=== PATIENT | female | born 1950 | race Caucasian/White ===

== ENCOUNTER → 2016-04-27 | Outpatient (POV) | payer MEDICARE | LOC: M IRPOV 14:41 | PROVIDERS: ATTEND Surgery | DX: I83.215 Varicose veins of right lower extremity with both ulcer other part of foot and inflammation (principal); I83.225 Varicose veins of left lower extremity with both ulcer other part of foot and inflammation; I83.812 Varicose veins of left lower extremity with pain; I83.893 Varicose veins of bilateral lower extremities with other complications ==

== ENCOUNTER → 2016-04-30 | Outpatient (CLI) | payer MEDICARE ==
--- NOTE | 2016-04-30 11:31 | REP ---
MR angiography of the aorta and lower extremity runoff arteries with IV contrast: History: Chronic venous hypertension left lower extremity with ulcer lateral aspect at the ankle. Smaller ulcer on the right foot. Technique: The gadolinium enhancement dose is 35 mL of intravenous ProHance. MR angiography is acquired and maximal intensity projection images are generated and viewed rotationally about the vertical axis. Source coronal images are viewed as well. MR angiographic findings: The suprarenal and infrarenal abdominal aorta are widely patent and smooth. The celiac and superior mesenteric axes are normal. Singular non-stenotic renal artery origins are seen. I do not see a definite flow in the inferior mesenteric artery. The common iliac arteries are widely patent bilaterally. The internal and external iliac arteries are widely patent bilaterally as well. Common femoral arteries are unremarkable. There is no evidence of profunda or proximal superficial femoral artery stenosis or occlusion. The mid and distal superficial femoral arteries are widely patent bilaterally. Popliteal arteries are of good caliber. The calf trifurcations are clear bilaterally and three-vessel calf run off is seen to the distal calf in both legs. There is mild venous overlay bilaterally in the calf portion of the study. Impression: No evidence of arterial inflow stenosis on either side. Signed by Boris Holbrook MD 04/30/2016 12:08 P
== END ==
LOC: M RAD 09:26
PROVIDERS: ATTEND Surgery
DX: I87.312 Chronic venous hypertension (idiopathic) with ulcer of left lower extremity (principal); Z86.79 Personal history of other diseases of the circulatory system; Z79.899 Other long term (current) drug therapy; I10 Essential (primary) hypertension
CPT/HCPCS: A9576; C8902; C8914

== ENCOUNTER → 2016-05-04 | Outpatient (CLI) | payer MEDICARE ==
--- NOTE | 2016-05-04 11:32 | REP ---
RIGHT LOWER EXTREMITY DOPPLER VENOUS ULTRASOUND: 05/04/2016. No comparison study. CLINICAL HISTORY: Nonhealing ulcer right ankle. Evaluate for DVT and reflux. TECHNIQUE: The deep venous system of the right lower extremity is evaluated with rene scale imaging, compression ultrasound, color imaging and duplex Doppler interrogation. Examination from the groin through the popliteal fossa into the proximal calf. FINDINGS: There is full compressibility from the common femoral vein in the inguinal region through the popliteal vein. Color imaging confirms patency throughout the course of the deep venous system. There is respiratory variation and augmented flow at all levels. IMPRESSION: 1. No Doppler venous ultrasound evidence of DVT in the right lower extremity. RIGHT LOWER EXTREMITY DOPPLER VENOUS REFLUX ULTRASOUND: 05/04/2016. Examination performed with standard duplex venous reflux study with Valsalva maneuver. Common femoral vein: There was minimal reflux. Anterior accessory GSV: Not present. GSV at saphenofemoral junction: Reflux seen. AP dimension 4.5 mm, 4.2 seconds. GSV at midthigh: Reflux seen with AP dimension 2.9 mm, 4.5 seconds. GSV at knee: reflux present with AP dimension 2.5 mm, 5.2 seconds. SFV proximal: No reflux. SFV mid: No reflux. SFV distal no reflux. Popliteal: No reflux. LSV: No reflux. AP diameter 1.8 mm. There were a few collaterals noted from the GSV, one of these leads posteriorly to the ankle ulcer with significant surrounding ankle edema. IMPRESSION: There is minimal reflux in the common femoral vein but no where else in the deep venous system. However, the greater saphenous vein showed significant reflux throughout with the time of reflux 4.2 to 5.2 seconds (positive reflux greater than 0.5 seconds). Signed by Eduard Friend MD 05/04/2016 12:03 P
== END ==
LOC: M RAD 08:29
PROVIDERS: ATTEND Surgery
DX: L97.311 Non-pressure chronic ulcer of right ankle limited to breakdown of skin (principal); I87.2 Venous insufficiency (chronic) (peripheral); I87.312 Chronic venous hypertension (idiopathic) with ulcer of left lower extremity; I87.332 Chronic venous hypertension (idiopathic) with ulcer and inflammation of left lower extremity

== ENCOUNTER → 2016-05-26 | Outpatient (CLI) | payer MEDICARE ==
[~2016-05-26] MED LIST: LIDOCAINE 2% MDV 20 ML VIAL As Ordered ONE; LIDOCAINE 4% CREAM 5GM (LMX4) As Ordered ONE; LORazepam 0.5 MG TAB As Ordered ONE; SODIUM TETRADECYL SULFATE(3%)30MG/ML 2ML VIAL (SOTRADECOL) As Ordered ONE
--- NOTE | 2016-05-27 18:34 | REPKIM ---
INDICATION: Patient with bilateral lower extremity varicose veins, active unhealing ulcers and complications present for left lower extremity EVLT of the incompetent GSV and LSV, sclerotherapy of significant varicosities in the calf leading to leg ulcers. Ultrasound reflux evaluation of the left leg showed significant reflux throughout the greater saphenous vein with the time of reflux 2.8 to 4.9 seconds. This also showed significant reflux in the lesser saphenous vein 5.4 second duration, AP diameter 6 mm. There are multiple collateral varicosities communicating with the incompetent lesser saphenous vein traversing toward the ankle ulcer. Patient has failed conservative treatment; utilization of compressive stockings, leg elevation wound debridement. PROCEDURE: 1. Endovenous laser ablation therapy of the incompetent GSV on the left 2. Endovenous laser ablation therapy of the incompetent LSV on the left 3. Sclerotherapy of significant collateral varicosities in the calf toward the ankle ulcer INTERVENTIONALIST: Annette Carpenter MD EBL: 5 mL MEDICATIONS: Ativan 0.5mg po, Local Lidocaine and Sodium Tetradecyl Sulfate 3% diluted to 1.5% DEVICE USED: 45-CM VenaCure EVLT [facility] Lot#[id number] TECHNIQUE AND FINDINGS: Informed consent was obtained prior to the procedure. The patient was placed supine on the table. A time out was performed that verified correct procedure, site, side and materials available. Ultrasound examination was performed and focused on the saphenofemoral junction of the left leg. This confirmed significant reflux involving the greater saphenous vein as previously described. There is a significant incompetent Giacomini large collateral was noted to connect the saphenous vein at the saphenofemoral junction. This also showed significant reflux involving the lesser saphenous vein with significant collateral varicosities toward the unhealing ankle ulcer. The patient was placed in the supine position. The left lower extremity was prepped and draped in the usual sterile fashion. After local anesthesia with 1mL of lidocaine 1% at the skin, the incompetent greater saphenous vein above the knee level was accessed with a 21 gauge needle and a 0.018" wire followed by a 4 Macanese sheath of the EVLT kit. The sheath was advanced over the wire to the saphenofemoral junction level and the laser fiber was advanced coaxially and its tip was positioned in the incompetent Giacomini collateral over a guidewire. The catheter tip was positioned at least 3-4cm distal from the saphenofemoral junction. After tumescent anesthesia, endovenous laser ablation was applied. Compression was maintained at the saphenofemoral junction. The sheath was then withdrawn and repositioned in the greater saphenous vein approximately 5 cm distal from the saphenofemoral junction. Tumescent anesthesia was given along this vein by using real-time ultrasonographic guidance and a 22 gauge spinal needle and a mixture of diluted lidocaine ( 12.5mL @ 2% in 237.5mL of normal saline). Endovenous laser ablation was applied along the greater saphenous vein using 6 Gilman in continuous mode for a total duration of 149 seconds. A total of 985 Joules was delivered. The patient was then positioned in the prone position. The left lower extremity was prepped and draped in the usual sterile fashion. After local anesthesia with 1mL of lidocaine 1% at the skin, the incompetent lesser saphenous vein was accessed with a 21 gauge needle and a 0.018" wire followed by a 4 Macanese sheath of the EVLT kit. The sheath was advanced over the wire to the saphenopopliteal junction level and the laser fiber was advanced coaxially and its tip was positioned approximately 4 cm distal from the saphenopopliteal junction. Tumescent anesthesia was given along this vein by using real-time ultrasonographic guidance and a 22 gauge spinal needle and a mixture of diluted lidocaine (12.5mL @ 2% in 237.5mL of normal saline). Endovenous laser ablation was applied along the lesser saphenous vein using 6 Gilman in continuous mode for a total duration of 31 seconds. A total of 183 Joules was delivered. Significant collateral varicosity in the calf region leading to the ankle ulcer was then accessed with a micropuncture needle. Approximately 2 mL of sclerotherapy foam (1mL sodium tetradecyl sulfate diluted at 1.5 %) mixed with air at a ratio of 1:4 injected. Compression was maintained. SteriStrips was applied on the skin, followed by 20-30 mm Hg compression stockings. The patient was then allowed to stand and instructed to walk for 15 minutes. She was then discharged back home in good and stable condition with no immediate complication. This procedure was performed with ultrasound guidance. Dr. Carpenter was present. IMPRESSION: 1. Bilateral lower extremity varicose veins with unhealing active ulcers and other complications. 2. Successful treatment of symptomatic incompetent GSV in the left lower extremity by endovenous laser ablation. 3. Successful treatment of symptomatic incompetent LSV in the left lower extremity by endovenous laser ablation. 4. Significant collateral varicosities leading to ulcer in the calf also treated with sclerotherapy as discussed above. PLAN: Pt was given post-procedure instructions, including contact information for a follow-up duplex ultrasound of the left lower extremity to rule out DVT and post EVLT/sclerotherapy evaluation in next several days. Plan to treat the right lower extremity incompetent superficial veins in next several weeks. cc: MD ISABEL Street
== END | disposition home or self-care (01) ==
LOC: M IRPRO 10:39
DX: I83.225 Varicose veins of left lower extremity with both ulcer other part of foot and inflammation (principal); I83.215 Varicose veins of right lower extremity with both ulcer other part of foot and inflammation; I83.893 Varicose veins of bilateral lower extremities with other complications; L97.819 Non-pressure chronic ulcer of other part of right lower leg with unspecified severity; L97.829 Non-pressure chronic ulcer of other part of left lower leg with unspecified severity
CPT/HCPCS: 36470; 36478; 36479; C1769; C1888

== ENCOUNTER → 2016-05-29 | Outpatient (CLI) | payer MEDICARE ==
--- NOTE | 2016-05-29 11:32 | REP ---
LEFT LOWER EXTREMITY DUPLEX VENOUS ULTRASOUND: HISTORY: Followup status post greater and lesser saphenous vein laser therapy. FINDINGS: The deep veins are anechoic and fully compressible from the groin to the popliteal fossa on two-dimensional scanning. Color-flow spectral Doppler interrogation demonstrates intact respiratory variation in flow and normal manual augmentation of flow. Color-flow imaging is homogeneous. There is no evidence of DVT. Thrombosis is observed as expected in the treated greater saphenous and lesser saphenous veins. IMPRESSION: Superficial vein thrombosis as expected in the treated lesser and greater saphenous veins. No evidence of deep vein thrombosis. Signed by Boris Holbrook MD 05/29/2016 12:52 P
== END ==
LOC: M RAD 09:59
DX: I82.812 Embolism and thrombosis of superficial veins of left lower extremity (principal)

== ENCOUNTER → 2016-06-29 | Outpatient (CLI) | payer MEDICARE ==
--- NOTE | 2016-06-29 18:09 | REPKIM ---
INDICATION: Patient with bilateral lower extremity varicose veins, active unhealing ulcers and complications, s/p successful EVLT and sclerotherapy of the left lower extremity on May 26, 2016 presents for EVLT of the right lower extremity incompetent GSV. PROCEDURE: Endovenous laser ablation therapy of the incompetent GSV on the right INTERVENTIONALIST: Annette Carpenter MD EBL: 3 mL MEDICATIONS: Ativan 0.5mg po, Local Lidocaine and Sodium Tetradecyl Sulfate 3% diluted to 1.5% DEVICE USED: 45-CM VenaCure EVLT [facility] Lot#[id number] TECHNIQUE AND FINDINGS: Informed consent was obtained prior to the procedure. The patient was placed supine on the table. A time out was performed that verified correct procedure, site, side and materials available. Ultrasound examination was performed and focused on the saphenofemoral junction of the right leg. This confirmed significant reflux, greater than 4-5 seconds involving the greater saphenous vein as previously described associated with calf significant subcutaneous edema. This also showed significant reflux involving the greater saphenous vein below the knee level and unhealing ulcer noted in the leg. The right lower extremity was prepped and draped in the usual sterile fashion. After local anesthesia with 1mL of lidocaine 1% at the skin, the incompetent greater saphenous vein above the knee level was accessed with a 21 gauge needle and a 0.018" wire followed by a 4 Irish sheath of the EVLT kit. The sheath was advanced over the wire to the saphenofemoral junction level and the laser fiber was advanced coaxially and its tip was positioned approximately 5 cm distal from the saphenofemoral junction. Tumescent anesthesia was given along this vein by using real-time ultrasonographic guidance and a 22 gauge spinal needle and a mixture of diluted lidocaine (12.5mL @ 2% in 237.5mL of normal saline). Endovenous laser ablation was applied along the greater saphenous vein using 6 Gilman in continuous mode for a total duration of 196 seconds. A total of 1177 Joules was delivered. Approximately 2 mL of sclerotherapy foam (1mL sodium tetradecyl sulfate diluted at 1.5 %) mixed with air at a ratio of 1:4 injected via the sheath prior to removal. Ultrasonography showed shrunken and hyper- echoic of the ablated vein as usually, with persistent fully compressibility of deep veins. SteriStrips was applied on the skin, followed by 20-30 mm Hg compression stockings. The patient was then allowed to stand and instructed to walk for 15 minutes. She was then discharged back home in good and stable condition with no immediate complication. This procedure was performed with ultrasound guidance. Dr. Carpenter was present. IMPRESSION: Successful treatment of symptomatic incompetent GSV in the right lower extremity by endovenous laser ablation. PLAN: Pt was given post-procedure instructions, including contact information for a follow-up duplex ultrasound of the right lower extremity to rule out DVT and post EVLT evaluation in next several days. cc: Gerson Morales MD [facility] HOSPITALRaymundo
== END | disposition home or self-care (01) ==
LOC: M IRPRO 08:22
DX: I83.215 Varicose veins of right lower extremity with both ulcer other part of foot and inflammation (principal); I83.893 Varicose veins of bilateral lower extremities with other complications; I83.225 Varicose veins of left lower extremity with both ulcer other part of foot and inflammation; L97.919 Non-pressure chronic ulcer of unspecified part of right lower leg with unspecified severity; L97.929 Non-pressure chronic ulcer of unspecified part of left lower leg with unspecified severity
CPT/HCPCS: 36478; C1888

== ENCOUNTER → 2016-07-02 | Outpatient (CLI) | payer MEDICARE ==
--- NOTE | 2016-07-02 14:58 | REP ---
RIGHT LOWER EXTREMITY DUPLEX VENOUS ULTRASOUND: HISTORY: Patient is status post endovascular laser thrombosis of the greater saphenous vein. Evaluate for DVT. FINDINGS: The deep veins are anechoic and fully compressible in the right lower extremity from the groin to the popliteal fossa on two-dimensional scanning. Color flow imaging is homogeneous. Spectral Doppler interrogation demonstrates intact respiratory variation in flow and normal manual augmentation of flow. There is no evidence of deep vein thrombosis. The greater saphenous vein shows occlusive thrombosis as expected post-treatment. IMPRESSION: No evidence of DVT. Signed by Boris Holbrook MD 07/02/2016 05:38 P
== END ==
LOC: M RAD 09:15
DX: Z48.812 Encounter for surgical aftercare following surgery on the circulatory system (principal)

== ENCOUNTER → 2016-09-11 | Outpatient (REF) | payer MEDICARE | LOC: M LAB REF 08:53 | PROVIDERS: ATTEND Surgery | DX: I87.311 Chronic venous hypertension (idiopathic) with ulcer of right lower extremity (principal) ==

== ENCOUNTER → 2016-12-18 | Outpatient (REF) | payer MEDICARE | LOC: M LAB REF 19:43 | PROVIDERS: ATTEND Physician Assistant | DX: R30.0 Dysuria (principal) ==

== ENCOUNTER → 2017-01-10 | Outpatient (REF) | payer MEDICARE | LOC: M LAB REF 18:35 | PROVIDERS: ATTEND Physician Assistant | DX: R30.0 Dysuria (principal) ==

== ENCOUNTER → 2018-01-21 | Outpatient (REF) | payer MEDICARE | LOC: M LAB REF 13:25 | DX: R30.0 Dysuria (principal) | CPT/HCPCS: 87086 ==

== ENCOUNTER → 2022-03-18 | Outpatient (CLI) | payer MEDICARE ==
[2022-03-18 11:49] LABS: BASO # 0.1 10^3/uL (0.0-0.2); BASO % 1.4 % (0.0-1.0); EOS # 0.3 10^3/uL (0.0-0.5); EOS % 3.2 % (0.0-3.0); HEMOGLOBIN 12.3 g/dl (12.0-15.5); LYMPH # 1.3 10^3/uL (1.5-5.0); LYMPH % 16.3 % (24.0-44.0); MEAN CORPUSCULAR HEMOGLOBIN 31.1 pg (27.0-33.0); MEAN CORPUSCULAR HGB CONC 33.2 g/dl (32.0-36.5); MEAN CORPUSCULAR VOLUME 93.4 fl (80.0-96.0); MONO # 0.8 10^3/uL (0.0-0.8); MONO % 10.3 % (2.0-8.0); NEUTROPHILS # 5.4 10^3/uL (1.5-8.5); NEUTROPHILS % 68.5 % (36.0-66.0); PLATELET COUNT, AUTOMATED 321 10^3/uL (150-450); RED BLOOD COUNT 3.96 10^6/uL (4.00-5.40); WHITE BLOOD COUNT 7.8 10^3/uL (4.0-10.0)
[2022-03-18 12:29] LABS: ALBUMIN 3.6 G/DL (3.2-5.2); ALKALINE PHOSPHATASE 65 U/L (46-116); ALT/SGPT 20 U/L (7.0-40); AST/SGOT 19 U/L (<34); BILIRUBIN,TOTAL 0.4 MG/DL (0.3-1.2); BLOOD UREA NITROGEN 23 MG/DL (9-23); CALCIUM LEVEL 8.9 MG/DL (8.3-10.6); CARBON DIOXIDE LEVEL 26 MMOL/L (20-31); CHLORIDE LEVEL 103 MMOL/L (98-107); GLOMERULAR FILTRATION RATE > 60.0 (>39); GLUCOSE, FASTING 92 MG/DL (74-106); POTASSIUM SERUM 3.3 MMOL/L (3.5-5.1); SODIUM LEVEL 139 MMOL/L (136-145); TOTAL PROTEIN 6.9 G/DL (5.7-8.2)
[2022-03-18 12:38] LABS: PREALBUMIN 19.5 MG/DL (10.0-40.0)
[2022-03-18 12:43] LABS: ERYTHROCYTE SEDIMENTATION RATE 56 mm/hr (0-30)
== END ==
LOC: M LAB 10:55
PROVIDERS: ATTEND Surgery
DX: I87.313 Chronic venous hypertension (idiopathic) with ulcer of bilateral lower extremity (principal); S81.802A Unspecified open wound, left lower leg, initial encounter; S81.801A Unspecified open wound, right lower leg, initial encounter; S81.802S Unspecified open wound, left lower leg, sequela; S81.801S Unspecified open wound, right lower leg, sequela; X58.XXXA Exposure to other specified factors, initial encounter; Y92.9 Unspecified place or not applicable; Y93.9 Activity, unspecified; Y99.9 Unspecified external cause status

== ENCOUNTER → 2022-03-27 | Outpatient (CLI) | payer MEDICARE | LOC: M PLARAD 14:41 | PROVIDERS: ATTEND Surgery | DX: S81.801A Unspecified open wound, right lower leg, initial encounter (principal); S81.802A Unspecified open wound, left lower leg, initial encounter ==

== ENCOUNTER → 2023-04-01 | Outpatient (CLI) | payer MEDICARE | LOC: M PLARAD 10:04 | PROVIDERS: ATTEND Surgery | DX: R22.42 Localized swelling, mass and lump, left lower limb (principal) ==

== ENCOUNTER → 2023-04-21 | Outpatient (REF) | payer MEDICARE ==
[2023-04-21 13:35] LABS: C REACTIVE PROTEIN QUANTITATIV < 0.40 MG/DL (<1.0)
[2023-04-21 13:37] LABS: PREALBUMIN 24.6 MG/DL (10.0-40.0)
== END ==
LOC: M LAB REF 12:04
PROVIDERS: ATTEND Internal Medicine
DX: M86.171 Other acute osteomyelitis, right ankle and foot (principal)

== ENCOUNTER → 2023-05-05 | Outpatient (REF) | payer MEDICARE ==
[2023-05-05 14:02] LABS: C REACTIVE PROTEIN QUANTITATIV < 0.40 MG/DL (<1.0)
[2023-05-05 14:06] LABS: PREALBUMIN 26.1 MG/DL (10.0-40.0)
== END ==
LOC: M LAB REF 12:39
PROVIDERS: ATTEND Internal Medicine
DX: M86.171 Other acute osteomyelitis, right ankle and foot (principal)

== ENCOUNTER → 2023-11-12 | Outpatient (REF) | payer MEDICARE ==
[2023-11-12 13:57] LABS: C REACTIVE PROTEIN QUANTITATIV 1.6 MG/DL (<1.0)
[2023-11-12 14:00] LABS: PREALBUMIN 23.9 MG/DL (10.0-40.0)
== END ==
LOC: M LAB REF 12:25
PROVIDERS: ATTEND Internal Medicine
DX: S81.802S Unspecified open wound, left lower leg, sequela (principal)

== ENCOUNTER → 2024-07-06 | Outpatient (REF) | payer MEDICARE ==
[2024-07-06 13:55] LABS: C REACTIVE PROTEIN QUANTITATIV 0.52 MG/DL (<1.0)
== END ==
LOC: M LAB REF 12:09
PROVIDERS: ATTEND Internal Medicine
DX: S81.801A Unspecified open wound, right lower leg, initial encounter (principal); S81.802A Unspecified open wound, left lower leg, initial encounter; Y93.9 Activity, unspecified; Y92.9 Unspecified place or not applicable

== ENCOUNTER → 2024-07-20 | Outpatient (CLI) | payer MEDICARE | LOC: M PLARAD 12:18 | PROVIDERS: ATTEND Surgery | DX: I87.313 Chronic venous hypertension (idiopathic) with ulcer of bilateral lower extremity (principal); R60.0 Localized edema; M25.474 Effusion, right foot; M25.475 Effusion, left foot; M76.61 Achilles tendinitis, right leg; M76.62 Achilles tendinitis, left leg; S81.802A Unspecified open wound, left lower leg, initial encounter; S81.802S Unspecified open wound, left lower leg, sequela; S81.801S Unspecified open wound, right lower leg, sequela; H25.9 Unspecified age-related cataract; I10 Essential (primary) hypertension; M19.90 Unspecified osteoarthritis, unspecified site ==

== ENCOUNTER → 2024-09-01 | Outpatient (CLI) | payer MEDICARE | LOC: M WUC 13:39 | PROVIDERS: ATTEND Internal Medicine | DX: M16.12 Unilateral primary osteoarthritis, left hip (principal) ==

== ENCOUNTER → 2024-09-01 | Outpatient (REF) | payer MEDICARE ==
[2024-09-01 13:06] LABS: C REACTIVE PROTEIN QUANTITATIV 4.29 MG/DL (<1.0)
[2024-09-01 13:07] LABS: PREALBUMIN 14.8 MG/DL (10.0-40.0)
== END ==
LOC: M LAB REF 12:16
PROVIDERS: ATTEND Internal Medicine
DX: M86.171 Other acute osteomyelitis, right ankle and foot (principal)

== ENCOUNTER → 2024-09-05 | Outpatient (REF) | payer MEDICARE | LOC: M LAB REF 17:17 | PROVIDERS: ATTEND Internal Medicine | DX: R74.8 Abnormal levels of other serum enzymes (principal); M86.171 Other acute osteomyelitis, right ankle and foot ==

== ENCOUNTER → 2025-01-22 | Outpatient (REF) | payer MEDICARE ==
[2025-01-22 17:48] LABS: BASO # 0.1 10^3/uL (0.0-0.2); BASO % 1.0 % (0.0-1.0); EOS # 0.3 10^3/uL (0.0-0.5); EOS % 3.5 % (0.0-3.0); LYMPH # 1.0 10^3/uL (1.5-5.0); LYMPH % 11.8 % (24.0-44.0); MONO # 0.9 10^3/uL (0.0-0.8); MONO % 10.6 % (2.0-8.0); NEUTROPHILS # 6.4 10^3/uL (1.5-8.5); NEUTROPHILS % 72.8 % (36.0-66.0); PLATELET COUNT, AUTOMATED 347 10^3/uL (150-450)
[2025-01-22 18:00] LABS: C REACTIVE PROTEIN QUANTITATIV 0.81 MG/DL (<1.0); ERYTHROCYTE SEDIMENTATION RATE 79 mm/hr (0-30)
[2025-01-22 18:01] LABS: ALT/SGPT 16.0 U/L (7.0-40); AST/SGOT 22.0 U/L (<34); CALCIUM LEVEL 9.3 MG/DL (8.3-10.6); CARBON DIOXIDE LEVEL 22.0 MMOL/L (20-31); CHLORIDE LEVEL 104.0 MMOL/L (98-107); CREATININE FOR GFR 0.81 MG/DL (0.55-1.30); GLOMERULAR FILTRATION RATE 75.7 (>39); POTASSIUM SERUM 4.5 MMOL/L (3.5-5.1); SODIUM LEVEL 138.0 MMOL/L (136-145)
== END ==
LOC: M LAB REF 16:33
PROVIDERS: ATTEND Surgery
DX: L03.119 Cellulitis of unspecified part of limb (principal)

== ENCOUNTER → 2025-02-05 | Outpatient (REF) | payer MEDICARE ==
[2025-02-05 14:11] LABS: PLATELET COUNT, AUTOMATED 299 10^3/uL (150-450)
[2025-02-05 14:25] LABS: C REACTIVE PROTEIN QUANTITATIV 0.73 MG/DL (<1.0)
[2025-02-05 14:28] LABS: ALT/SGPT 20.0 U/L (7.0-40); AST/SGOT 24.0 U/L (<34); CALCIUM LEVEL 9.2 MG/DL (8.3-10.6); CARBON DIOXIDE LEVEL 24.0 MMOL/L (20-31); CHLORIDE LEVEL 106.0 MMOL/L (98-107); CREATININE FOR GFR 0.73 MG/DL (0.55-1.30); GLOMERULAR FILTRATION RATE 85.7 (>39); POTASSIUM SERUM 4.0 MMOL/L (3.5-5.1); SODIUM LEVEL 142.0 MMOL/L (136-145)
== END ==
LOC: M LAB REF 12:57
PROVIDERS: ATTEND Surgery
DX: M86.171 Other acute osteomyelitis, right ankle and foot (principal)

== ENCOUNTER → 2025-02-19 | Outpatient (REF) | payer MEDICARE ==
[2025-02-19 14:45] LABS: PLATELET COUNT, AUTOMATED 291 10^3/uL (150-450)
[2025-02-19 15:16] LABS: C REACTIVE PROTEIN QUANTITATIV 2.48 MG/DL (<1.0)
[2025-02-19 15:18] LABS: ALT/SGPT 21.0 U/L (7.0-40); AST/SGOT 28.0 U/L (<34); CALCIUM LEVEL 9.5 MG/DL (8.3-10.6); CARBON DIOXIDE LEVEL 21.0 MMOL/L (20-31); CHLORIDE LEVEL 109.0 MMOL/L (98-107); CREATININE FOR GFR 0.91 MG/DL (0.55-1.30); GLOMERULAR FILTRATION RATE 65.8 (>39); POTASSIUM SERUM 4.3 MMOL/L (3.5-5.1); SODIUM LEVEL 143.0 MMOL/L (136-145)
== END ==
LOC: M LAB REF 14:14
PROVIDERS: ATTEND Surgery
DX: M86.171 Other acute osteomyelitis, right ankle and foot (principal)

== ENCOUNTER → 2025-02-26 | Outpatient (REF) | payer MEDICARE ==
[2025-02-26 16:09] LABS: PLATELET COUNT, AUTOMATED 236 10^3/uL (150-450)
[2025-02-26 16:35] LABS: C REACTIVE PROTEIN QUANTITATIV 6.69 MG/DL (<1.0)
[2025-02-26 16:36] LABS: ALT/SGPT 17.0 U/L (7.0-40); AST/SGOT 24.0 U/L (<34); CALCIUM LEVEL 8.5 MG/DL (8.3-10.6); CARBON DIOXIDE LEVEL 20.0 MMOL/L (20-31); CHLORIDE LEVEL 105.0 MMOL/L (98-107); CREATININE FOR GFR 0.71 MG/DL (0.55-1.30); GLOMERULAR FILTRATION RATE 88.6 (>39); POTASSIUM SERUM 4.1 MMOL/L (3.5-5.1); SODIUM LEVEL 136.0 MMOL/L (136-145)
== END ==
LOC: M LAB REF 15:27
PROVIDERS: ATTEND Surgery
DX: M86.171 Other acute osteomyelitis, right ankle and foot (principal)